=== PATIENT | female | born 1990 | race Caucasian/White ===

== ENCOUNTER 2017-10-28 11:18 | Inpatient (IN) | payer OTHER ==
[2017-10-28 11:47] VITALS: BMI 25.0
--- NOTE | 2017-10-28 14:41 | HP ---
COWS - Scale Resting Pulse: 1= [place] 81-100 Sweatin=Flushed/Facial Moisture Restless Observation: 3= Extraneous Movement Pupil Size: 2= Moderately Dilated Bone or Joint Aches: 2= Severe Diffuse Aches Runny Nose/ Eye Tearin= Runny Nose/Eyes GI Upset > 30mins: 3= Vomiting/Diarrhea Tremor Observation: 2= Slight Tremor Visible Yawning Observation: 2= >3x During Session Anxiety or Irritability: 2=Irritable/Anxious Goose Flesh Skin: 0=Smooth Skin COWS Score: 21 CIWA Score - CIWA Score Nausea/Vomitin Muscle Tremors: 3 Anxiety: 3 Agitation: 3 Paroxysmal Sweats: 1-Minimal Palms Moist Orientation: 0-Oriented Tacttile Disturbances: 2-Mild Itch/Numbness/Burn Auditory Disturbances: 2-Mild Harshness/Frighten Visual Disturbances: 0-None Headache: 2-Mild CIWA-Ar Total Score: 19 Admission ROS BHS - HPI Chief Complaint: i need help to stop using heroin,alxohil,xanax,cocaine Allergies/Adverse Reactions: Allergies Allergy/AdvReac Type Severity Reaction Status Date / Time No Known Allergies Allergy Verified 10/28/17 14:20 History of Present Illness: this 27 years old female with heroin,alcohol,xanax,cocaine dpendence,seeking detox,withdrawal symptom,never been in detox before seizure drug withdrawal last 06/14 anxiety,depression,insomnia nicotine dependence need help to come in for detox - Ebola screening Have you traveled outside of the country in the last 21 days: No Have you had contact with anyone from an Ebola affected area: No Have you been sick,other than usual withdrawal symptoms: No - Review of Systems Constitutional: Chills, Diaphoresis, Loss of Appetite, Malaise, Night Sweats, Changes in sleep, Weakness, Unintentional Wgt. Loss EENT: reports: Tearing, Nose Congestion Respiratory: reports: No Symptoms reported Cardiac: reports: Palpitations GI: reports: Diarrhea, Nausea, Vomiting, Abdominal cramping : reports: No Symptoms Reported Musculoskeletal: reports: Back Pain, Joint Pain, Muscle Pain, Joint Stiffness Integumentary: reports: Dryness Neuro: reports: Headache, Tremors Endocrine: reports: No Symptoms Reported Hematology: reports: No Symptoms Reported Psychiatric: reports: No Sypmtoms Reported, Judgement Intact, Mood/Affect Appropiate, Orientated x3 (insomnia), Anxious, Depressed Patient History - Patient Medical History Hx Asthma: No Hx Chronic Obstructive Pulmonary Disease (COPD): No Hx Cardiac Disorders: No Hx Hypertension: No Hx Seizures: Yes (XANAX RELATED LAST 4 MONTHS AGO.) Hx Diabetes: No Hx Gastrointestinal Disorders: No Hx Genitourinary Disorders: No Hx Sexually Transmitted Disorders: No Hx Renal Disease (ESRD): No Hx Thyroid Disease: No Hx Human Immunodeficiency Virus (HIV): No (06/14) Hx Hepatitis C: No Hx Depression: Yes (anxiety) Hx Suicide Attempt: No Hx Bipolar Disorder: No Hx Schizophrenia: No Other Medical History: insomnia - Patient Surgical History Past Surgical History: No - PPD History Previous Implant?: Yes Documented Results: Negative w/o proof Implanted On Prior [facility] Admission?: No PPD to be Administered?: Yes - Reproductive History Patient is a Female of Child Bearing Age (11 -55 yrs old): Yes Last Menstrual Period: 10/18/17 Patient : No - Smoking Cessation Smoking history: Current every day smoker Aproximately how many cigarettes per day: 20 Hx Chewing Tobacco Use: No Initiated information on smoking cessation: Yes 'Breaking Loose' booklet given: 10/28/17 - Substance & Tx. History Hx Alcohol Use: Yes Hx Substance Use: Yes Substance Use Type: Alcohol, Cocaine, Heroin, Tranquilizers Hx Substance Use Treatment: No - Substances Abused Heroin Route: Injection Frequency: Daily Amount used: 20 BAGS Age of first use: 27 Date of Last Use: 10/27/17 Alcohol Route: Oral Frequency: Daily Amount used: 1 PINT VODKA OR BOTTLE WINE Age of first use: 16 Date of Last Use: 10/26/17 Alprazolam (Xanax) Route: Oral Frequency: Daily Amount used: 8MG Age of first use: 18 Date of Last Use: 10/26/17 Family Disease History - Family Disease History Family Disease History: Other: Mother (alcohol), Sister Admission Physical Exam BHS - Vital Signs Vital Signs: Vital Signs - 24 hr 10/28/17 11:44 Temperature 98.2 F Pulse Rate 100 H Respiratory 18 Rate Blood Pressure 139/73 - Physical General Appearance: Yes: Moderate Distress, Tremorous, Irritable, Sweating, Anxious HEENTM: Yes: Normal ENT Inspection, ERIN, Pharynx Normal Respiratory: Yes: Lungs Clear, Normal Breath Sounds, No Respiratory Distress Neck: Yes: Within Normal Limits Breast: Yes: Breast Exam Deferred Cardiology: Yes: Tachycardia Abdominal: Yes: Within Normal Limits, Soft Genitourinary: Yes: Within Normal Limits Back: Yes: Muscle Spasm Musculoskeletal: Yes: Back pain, Joint Stiffness, Muscle Pain Extremities: Yes: Tremors Neurological: Yes: roller mechanic II-XII NML intact, Fully Oriented, Alert, Motor Strength 5/5 Integumentary: Yes: Dry Lymphatic: Yes: Within Normal Limits - Diagnostic (1) Opioid dependence with withdrawal Current Visit: Yes Status: Acute (2) Alcohol dependence with uncomplicated withdrawal Current Visit: Yes Status: Acute (3) Uncomplicated sedative, hypnotic or anxiolytic withdrawal Current Visit: Yes Status: Acute (4) Nicotine dependence Current Visit: Yes Status: Acute (5) Insomnia secondary to depression with anxiety Current Visit: Yes Status: Acute (6) Weight loss Current Visit: Yes Status: Acute Cleared for Admission [facility] - Detox or Rehab [facility] Level of Care: Medically Managed Detox Regimen/Protocol: Methadone/Valium [facility] Breath Alcohol Content Breath Alcohol Content: 0 Urine Pregancy Test - Result Urine Test Results: Negative- NO Line Present Urine Drug Screen - Results Drug Screen Negative: No Urine Drug Screen Results: TIFFANIE-Cocaine, OPI-Opiates, OXY-Oxycodone
[2017-10-28] MEDS ORDERED: guaiFENesin/D-METHORPHAN HB 10 ML UNIT-DOSE CUPS PO PRN (14:51)
[2017-10-28] MEDS ORDERED: P-EPHED 60MG/TRIPROLIDI 2.5MG TABLET PO PRN (14:51)
[2017-10-28] MEDS ORDERED: MAG HYDROX/AL HYDROX/SIMETH 30 ML UNIT-DOSE CUP PO PRN (14:51)
[2017-10-28] MEDS ORDERED: MAGNESIUM HYDROX 2400MG/30ML ORAL SUSPENSION 30 ML CUP PO PRN (14:51)
[2017-10-28] MEDS ORDERED: MENTHOL/PHENOL 1 EACH UD MM PRN (14:51)
[2017-10-28] MEDS ORDERED: LOPERAMIDE HCL 2 MG CAPSULE PO PRN (14:51)
[2017-10-28] MEDS ORDERED: MAGNESIUM CITRATE 300 ML BOTTLE PO PRN (14:51)
[2017-10-28] MEDS ORDERED: ACETAMINOPHEN 325 MG TABLET (FP) PO PRN (14:51)
[2017-10-28] MEDS ORDERED: IBUPROFEN 400 MG TABLET (FP) PO PRN (14:51)
[2017-10-28] MEDS ORDERED: NICOTINE POLACRILEX 2 MG GUM BUC PRN (14:51)
[2017-10-28] MEDS ORDERED: diazePAM 5 MG TABLET PO ONE (15:10)
[2017-10-28] MEDS ORDERED: METHADONE HCL 10 MG TABLET (FOR DETOX USE ONLY) PO ONE ×2 (15:15→23:00)
[2017-10-28] MEDS: NICOTINE 21 MG/24 HOURS TOPICAL PATCH TD SCH (15:27)
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
[2017-10-28 22:31] LABS: URINE APPEARANCE CLOUDY; URINE BILIRUBIN NEGATIVE (NEGATIVE); URINE BLOOD NEGATIVE (NEGATIVE); URINE COLOR LTYELLOW; URINE GLUCOSE (UA) NEGATIVE (NEGATIVE); URINE KETONE NEGATIVE (NEGATIVE); URINE NITRITE NEGATIVE (NEGATIVE); URINE PROTEIN NEGATIVE (NEGATIVE); URINE UROBILINOGEN NEGATIVE mg/dL (0.2-1.0)
[2017-10-28 22:32] LABS: URINE LEUK ESTERASE 3+ (NEGATIVE)
[2017-10-28 22:41] LABS: EPI CELLS MODERATE /HPF (FEW)
[2017-10-28] MEDS: diazePAM 5 MG TABLET PO SCH (22:49)
[2017-10-28] MEDS: THIAMINE HCL 100 MG TABLET (FP) PO SCH (22:49)
[2017-10-28] MEDS: ZOLPIDEM TARTRATE 5 MG TABLET PO PRN (22:49)
[2017-10-29] MEDS: diazePAM 5 MG TABLET PO SCH ×3 (05:57→22:36)
[2017-10-29] MEDS ORDERED: METHADONE HCL 10 MG TABLET (FOR DETOX USE ONLY) PO SCH (10:00)
[2017-10-29] MEDS: NICOTINE 21 MG/24 HOURS TOPICAL PATCH TD SCH (10:34)
[2017-10-29] MEDS: PRENATAL VITAMINS W/ FOLIC ACID TABLET (FP) PO SCH (10:34)
[2017-10-29] MEDS: diazePAM 5 MG TABLET PO PRN ×2 (10:34→17:29)
[2017-10-29 11:02] LABS: HEMATOCRIT 37.3 % (32.4-45.2); HEMOGLOBIN 12.9 GM/dL (10.7-15.3); MCH 30.8 pg (25.7-33.7); MCHC 34.6 g/dl (32.0-36.0); MEAN CELL VOLUME 88.8 fl (80-96); MEAN PLT VOLUME 7.5 fl (7.5-11.1); PLATELET COUNT 415 K/MM3 (134-434); RDW 12.4 % (11.6-15.6); WHITE BLOOD COUNT 10.9 K/mm3 (4.0-10.0)
[2017-10-29 11:12] LABS: ALBUMIN 3.5 g/dl (3.4-5.0); ANION GAP 7 (8-16); BLOOD UREA NITROGEN 5 mg/dL (7-18); CHLORIDE 101 mmol/L (98-107); CO2 27 mmol/L (21-32); CREATININE 0.8 mg/dL (0.55-1.02); GLUCOSE,RANDOM 135 mg/dL (74-106); POTASSIUM 3.9 mmol/L (3.5-5.1); SGOT/AST 18 U/L (15-37); SGPT/ALT 28 U/L (12-78); SODIUM 135 mmol/L (136-145)
[2017-10-29 11:14] LABS: ALK PHOS 78 U/L (45-117); BILIRUBIN,TOTAL 0.5 mg/dL (0.2-1.0); TOT PROT 7.2 g/dl (6.4-8.2)
--- NOTE | 2017-10-29 11:57 | EKG ---
Test Reason : Blood Pressure : / mmHG Vent. Rate : 072 BPM Atrial Rate : 072 BPM P-R Int : 140 ms QRS Dur : 100 ms QT Int : 370 ms P-R-T Axes : 053 099 057 degrees QTc Int : 405 ms NORMAL SINUS RHYTHM WITH SINUS ARRHYTHMIA RIGHTWARD AXIS BORDERLINE ECG NO PREVIOUS ECGS AVAILABLE Confirmed by MD LAVELL, PAM ([id number]) on 10/29/2017 11:57:34 AM Referred By: Confirmed By:PAM MONTE MD
--- NOTE | 2017-10-29 16:03 | PN ---
[facility] CIWA - CIWA Score Nausea/Vomitin Muscle Tremors: 3 Anxiety: 3 Agitation: 2 Paroxysmal Sweats: 1-Minimal Palms Moist Orientation: 0-Oriented Tacttile Disturbances: 1-Very Mild Itch/Numbness Auditory Disturbances: 1-Very Mild Visual Disturbances: 0-None Headache: 2-Mild CIWA-Ar Total Score: 16 BHS COWS - Scale Resting Pulse: 1= [place] 81-100 Sweatin= Chills/Flushing Restless Observation: 3= Extraneous Movement Pupil Size: 1= Pupils >than Normal Bone or Joint Aches: 2= Severe Diffuse Aches Runny Nose/ Eye Tearin= Runny Nose/Eyes GI Upset > 30mins: 3= Vomiting/Diarrhea Tremor Observation of Outstretched Hands: 2= Slight Tremor Visible Yawning Observation: 1= 1-2x During Session Anxiety or Irritability: 2=Irritable/Anxious Goose Flesh Skin: 0=Smooth Skin COWS Score: 18 S Progress Note (SOAP) Subjective: ALERT,IRRITABLE,ANXIOUS,INTERRUPTED SLEEP,PAIN IN THE BODY AND BACK Objective: 10/29/17 16:00 Vital Signs Temperature 99.1 F 10/29/17 11:52 Pulse Rate 81 10/29/17 11:52 Respiratory Rate 16 10/29/17 11:52 Blood Pressure 114/73 10/29/17 11:52 O2 Sat by Pulse Oximetry (%) EKG NSR WITH SINUS ARRHYTHMIA NO CHEST PAIN,NO SOB,NO DIZZINESS Laboratory Last Values WBC 10.9 K/mm3 (4.0-10.0) H 10/29/17 05:40 RBC 4.20 M/mm3 (3.60-5.2) 10/29/17 05:40 Hgb 12.9 GM/dL (10.7-15.3) 10/29/17 05:40 Hct 37.3 % (32.4-45.2) 10/29/17 05:40 MCV 88.8 fl (80-96) 10/29/17 05:40 MCH 30.8 pg (25.7-33.7) 10/29/17 05:40 MCHC 34.6 g/dl (32.0-36.0) 10/29/17 05:40 RDW 12.4 % (11.6-15.6) 10/29/17 05:40 Plt Count 415 K/MM3 (134-434) 10/29/17 05:40 MPV 7.5 fl (7.5-11.1) 10/29/17 05:40 Sodium 135 mmol/L (136-145) L 10/29/17 05:40 Potassium 3.9 mmol/L (3.5-5.1) 10/29/17 05:40 Chloride 101 mmol/L (98-107) 10/29/17 05:40 Carbon Dioxide 27 mmol/L (21-32) 10/29/17 05:40 Anion Gap 7 (8-16) L 10/29/17 05:40 BUN 5 mg/dL (7-18) L 10/29/17 05:40 Creatinine 0.8 mg/dL (0.55-1.02) 10/29/17 05:40 Creat Clearance w eGFR > 60 (>60) 10/29/17 05:40 Random Glucose 135 mg/dL (74-106) H 10/29/17 05:40 Calcium 8.0 mg/dL (8.5-10.1) L 10/29/17 05:40 Total Bilirubin 0.5 mg/dL (0.2-1.0) 10/29/17 05:40 AST 18 U/L (15-37) 10/29/17 05:40 ALT 28 U/L (12-78) 10/29/17 05:40 Alkaline Phosphatase 78 U/L (45-117) 10/29/17 05:40 Total Protein 7.2 g/dl (6.4-8.2) 10/29/17 05:40 Albumin 3.5 g/dl (3.4-5.0) 10/29/17 05:40 Urine Color Ltyellow 10/28/17 21:30 Urine Appearance Cloudy 10/28/17 21:30 Urine pH 7.0 (5.0-8.0) D 10/28/17 21:30 Ur Specific [place] 1.003 (1.001-1.035) 10/28/17 21:30 Urine Protein Negative (NEGATIVE) 10/28/17 21:30 Urine Glucose (UA) Negative (NEGATIVE) 10/28/17 21:30 Urine Ketones Negative (NEGATIVE) 10/28/17 21:30 Urine Blood Negative (NEGATIVE) 10/28/17 21:30 Urine Nitrite Negative (NEGATIVE) 10/28/17 21:30 Urine Bilirubin Negative (NEGATIVE) 10/28/17 21:30 Urine Urobilinogen Negative mg/dL (0.2-1.0) 10/28/17 21:30 Ur Leukocyte Esterase 3+ (NEGATIVE) H 10/28/17 21:30 Urine WBC (Auto) 15 /hpf (3-5) 10/28/17 21:30 Urine RBC (Auto) 1 /hpf (0-3) 10/28/17 21:30 Ur Epithelial Cells Moderate /HPF (FEW) 10/28/17 21:30 Assessment: 10/29/17 16:02 WITHDRAWAL SYMPTOM Plan: CONTINUE DETOX,BGM MONITORING,ENCOURAGE ORAL FLUID,BGM MONITORING
[2017-10-29] MEDS: ZOLPIDEM TARTRATE 5 MG TABLET PO PRN (22:36)
[2017-10-29] MEDS: THIAMINE HCL 100 MG TABLET (FP) PO SCH (22:36)
[2017-10-30] MEDS: diazePAM 5 MG TABLET PO PRN ×5 (02:48→20:47)
[2017-10-30] MEDS: NICOTINE 21 MG/24 HOURS TOPICAL PATCH TD SCH (10:18)
[2017-10-30] MEDS: METHADONE HCL 5 MG TABLET (FOR DETOX USE ONLY) PO SCH (10:18)
[2017-10-30] MEDS: diazePAM 5 MG TABLET PO SCH ×2 (10:18→22:39)
[2017-10-30] MEDS: PRENATAL VITAMINS W/ FOLIC ACID TABLET (FP) PO SCH (10:18)
[2017-10-30 10:27] LABS: HEMATOCRIT 33.7 % (32.4-45.2); HEMOGLOBIN 11.7 GM/dL (10.7-15.3); MCH 30.8 pg (25.7-33.7); MCHC 34.7 g/dl (32.0-36.0); MEAN CELL VOLUME 88.6 fl (80-96); MEAN PLT VOLUME 6.9 fl (7.5-11.1); PLATELET COUNT 380 K/MM3 (134-434); RDW 12.3 % (11.6-15.6); WHITE BLOOD COUNT 7.1 K/mm3 (4.0-10.0)
--- NOTE | 2017-10-30 10:29 | PN ---
[facility] CIWA - CIWA Score Nausea/Vomitin-No Nausea/No Vomiting Muscle Tremors: 4-Moderate,w/Arms Extend Anxiety: 4-Mod. Anxious/Guarded Agitation: 3 Paroxysmal Sweats: 1-Minimal Palms Moist Orientation: 0-Oriented Tacttile Disturbances: 0-None Auditory Disturbances: 0-None Visual Disturbances: 0-None Headache: 0-None Present CIWA-Ar Total Score: 12 BHS COWS - Scale Resting Pulse: 0= [place] 80 or Below Sweatin= Chills/Flushing Restless Observation: 1= Difficult to Sit Still Pupil Size: 1= Pupils >than Normal Bone or Joint Aches: 2= Severe Diffuse Aches Runny Nose/ Eye Tearin= Runny Nose/Eyes GI Upset > 30mins: 1= Stomach Cramp Tremor Observation of Outstretched Hands: 2= Slight Tremor Visible Yawning Observation: 2= >3x During Session Anxiety or Irritability: 2=Irritable/Anxious Goose Flesh Skin: 0=Smooth Skin COWS Score: 14 S Progress Note (SOAP) Subjective: sweat tremor restlessness irritable agitation joint aches Objective: 10/30/17 10:28 Vital Signs Temperature 98.1 F 10/30/17 08:14 Pulse Rate 69 10/30/17 08:14 Respiratory Rate 16 10/30/17 08:14 Blood Pressure 124/77 10/30/17 08:14 O2 Sat by Pulse Oximetry (%) Laboratory Last Values WBC 10.9 K/mm3 (4.0-10.0) H 10/29/17 05:40 RBC 4.20 M/mm3 (3.60-5.2) 10/29/17 05:40 Hgb 12.9 GM/dL (10.7-15.3) 10/29/17 05:40 Hct 37.3 % (32.4-45.2) 10/29/17 05:40 MCV 88.8 fl (80-96) 10/29/17 05:40 MCH 30.8 pg (25.7-33.7) 10/29/17 05:40 MCHC 34.6 g/dl (32.0-36.0) 10/29/17 05:40 RDW 12.4 % (11.6-15.6) 10/29/17 05:40 Plt Count 415 K/MM3 (134-434) 10/29/17 05:40 MPV 7.5 fl (7.5-11.1) 10/29/17 05:40 Sodium 135 mmol/L (136-145) L 10/29/17 05:40 Potassium 3.9 mmol/L (3.5-5.1) 10/29/17 05:40 Chloride 101 mmol/L (98-107) 10/29/17 05:40 Carbon Dioxide 27 mmol/L (21-32) 10/29/17 05:40 Anion Gap 7 (8-16) L 10/29/17 05:40 BUN 5 mg/dL (7-18) L 10/29/17 05:40 Creatinine 0.8 mg/dL (0.55-1.02) 10/29/17 05:40 Creat Clearance w eGFR > 60 (>60) 10/29/17 05:40 Random Glucose 135 mg/dL (74-106) H 10/29/17 05:40 Calcium 8.0 mg/dL (8.5-10.1) L 10/29/17 05:40 Total Bilirubin 0.5 mg/dL (0.2-1.0) 10/29/17 05:40 AST 18 U/L (15-37) 10/29/17 05:40 ALT 28 U/L (12-78) 10/29/17 05:40 Alkaline Phosphatase 78 U/L (45-117) 10/29/17 05:40 Total Protein 7.2 g/dl (6.4-8.2) 10/29/17 05:40 Albumin 3.5 g/dl (3.4-5.0) 10/29/17 05:40 Urine Color Ltyellow 10/28/17 21:30 Urine Appearance Cloudy 10/28/17 21:30 Urine pH 7.0 (5.0-8.0) D 10/28/17 21:30 Ur Specific [place] 1.003 (1.001-1.035) 10/28/17 21:30 Urine Protein Negative (NEGATIVE) 10/28/17 21:30 Urine Glucose (UA) Negative (NEGATIVE) 10/28/17 21:30 Urine Ketones Negative (NEGATIVE) 10/28/17 21:30 Urine Blood Negative (NEGATIVE) 10/28/17 21:30 Urine Nitrite Negative (NEGATIVE) 10/28/17 21:30 Urine Bilirubin Negative (NEGATIVE) 10/28/17 21:30 Urine Urobilinogen Negative mg/dL (0.2-1.0) 10/28/17 21:30 Ur Leukocyte Esterase 3+ (NEGATIVE) H 10/28/17 21:30 Urine WBC (Auto) 15 /hpf (3-5) 10/28/17 21:30 Urine RBC (Auto) 1 /hpf (0-3) 10/28/17 21:30 Ur Epithelial Cells Moderate /HPF (FEW) 10/28/17 21:30 lab noted Assessment: 10/30/17 10:29 withdrawal sx Plan: continue detox
[2017-10-30 18:28] LABS: URINE APPEARANCE CLEAR; URINE BILIRUBIN NEGATIVE (NEGATIVE); URINE BLOOD NEGATIVE (NEGATIVE); URINE COLOR YELLOW; URINE GLUCOSE (UA) NEGATIVE (NEGATIVE); URINE KETONE NEGATIVE (NEGATIVE); URINE LEUK ESTERASE TRACE (NEGATIVE); URINE NITRITE NEGATIVE (NEGATIVE); URINE PROTEIN NEGATIVE (NEGATIVE); URINE UROBILINOGEN NEGATIVE mg/dL (0.2-1.0)
[2017-10-30 18:32] LABS: EPI CELLS RARE /HPF (FEW); URINE MUCUS MODERATE
[2017-10-30] MEDS: THIAMINE HCL 100 MG TABLET (FP) PO SCH (22:39)
[2017-10-30] MEDS: ZOLPIDEM TARTRATE 5 MG TABLET PO PRN (22:39)
[2017-10-31] MEDS: diazePAM 5 MG TABLET PO PRN ×3 (00:34→13:13)
--- NOTE | 2017-10-31 09:58 | PN ---
BHS Progress Note (SOAP) Subjective: joint aches sweat tremor restlessness gi upset Objective: 10/31/17 09:57 Vital Signs Temperature 97.9 F 10/31/17 06:00 Pulse Rate 89 10/31/17 06:00 Respiratory Rate 18 10/31/17 06:00 Blood Pressure 95/51 10/31/17 06:00 O2 Sat by Pulse Oximetry (%) Laboratory Last Values WBC 7.1 K/mm3 (4.0-10.0) D 10/30/17 08:00 RBC 3.80 M/mm3 (3.60-5.2) 10/30/17 08:00 Hgb 11.7 GM/dL (10.7-15.3) 10/30/17 08:00 Hct 33.7 % (32.4-45.2) 10/30/17 08:00 MCV 88.6 fl (80-96) 10/30/17 08:00 MCH 30.8 pg (25.7-33.7) 10/30/17 08:00 MCHC 34.7 g/dl (32.0-36.0) 10/30/17 08:00 RDW 12.3 % (11.6-15.6) 10/30/17 08:00 Plt Count 380 K/MM3 (134-434) 10/30/17 08:00 MPV 6.9 fl (7.5-11.1) L 10/30/17 08:00 Sodium 135 mmol/L (136-145) L 10/29/17 05:40 Potassium 3.9 mmol/L (3.5-5.1) 10/29/17 05:40 Chloride 101 mmol/L (98-107) 10/29/17 05:40 Carbon Dioxide 27 mmol/L (21-32) 10/29/17 05:40 Anion Gap 7 (8-16) L 10/29/17 05:40 BUN 5 mg/dL (7-18) L 10/29/17 05:40 Creatinine 0.8 mg/dL (0.55-1.02) 10/29/17 05:40 Creat Clearance w eGFR > 60 (>60) 10/29/17 05:40 Random Glucose 135 mg/dL (74-106) H 10/29/17 05:40 Calcium 8.0 mg/dL (8.5-10.1) L 10/29/17 05:40 Total Bilirubin 0.5 mg/dL (0.2-1.0) 10/29/17 05:40 AST 18 U/L (15-37) 10/29/17 05:40 ALT 28 U/L (12-78) 10/29/17 05:40 Alkaline Phosphatase 78 U/L (45-117) 10/29/17 05:40 Total Protein 7.2 g/dl (6.4-8.2) 10/29/17 05:40 Albumin 3.5 g/dl (3.4-5.0) 10/29/17 05:40 Urine Color Yellow 10/30/17 10:35 Urine Appearance Clear 10/30/17 10:35 Urine pH 6.0 (5.0-8.0) 10/30/17 10:35 Ur Specific [place] 1.010 (1.001-1.035) 10/30/17 10:35 Urine Protein Negative (NEGATIVE) 10/30/17 10:35 Urine Glucose (UA) Negative (NEGATIVE) 10/30/17 10:35 Urine Ketones Negative (NEGATIVE) 10/30/17 10:35 Urine Blood Negative (NEGATIVE) 10/30/17 10:35 Urine Nitrite Negative (NEGATIVE) 10/30/17 10:35 Urine Bilirubin Negative (NEGATIVE) 10/30/17 10:35 Urine Urobilinogen Negative mg/dL (0.2-1.0) 10/30/17 10:35 Ur Leukocyte Esterase Trace (NEGATIVE) 10/30/17 10:35 Urine WBC (Auto) 1 /hpf (3-5) 10/30/17 10:35 Urine RBC (Auto) <1 /hpf (0-3) 10/30/17 10:35 Ur Epithelial Cells Rare /HPF (FEW) 10/30/17 10:35 Urine Mucus Moderate 10/30/17 10:35 RPR Titer Nonreactive (NONREACTIVE) 10/29/17 05:40 lab noted Assessment: 10/31/17 09:57 withdrawal sx Plan: continue detox
[2017-10-31] MEDS: diazePAM 5 MG TABLET PO SCH ×2 (11:09→22:26)
[2017-10-31] MEDS: PRENATAL VITAMINS W/ FOLIC ACID TABLET (FP) PO SCH (11:09)
[2017-10-31] MEDS: METHADONE HCL 5 MG TABLET (FOR DETOX USE ONLY) PO SCH (11:09)
[2017-10-31] MEDS: NICOTINE 21 MG/24 HOURS TOPICAL PATCH TD SCH (11:11)
[2017-10-31] MEDS: hydrOXYzine PAMOATE 25 MG CAPSULE (FP) PO PRN (17:06)
[2017-10-31] MEDS: ZOLPIDEM TARTRATE 5 MG TABLET PO PRN (22:26)
[2017-10-31] MEDS: THIAMINE HCL 100 MG TABLET (FP) PO SCH (22:26)
--- NOTE | 2017-11-01 08:59 | PN ---
S Progress Note (SOAP) Subjective: alert oriented x 3, tolerates food and fluid well, no tremor less sweat Objective: 11/01/17 08:59 Vital Signs Temperature 97.9 F 11/01/17 06:00 Pulse Rate 84 11/01/17 06:00 Respiratory Rate 16 11/01/17 06:00 Blood Pressure 134/54 11/01/17 06:00 O2 Sat by Pulse Oximetry (%) Laboratory Last Values WBC 7.1 K/mm3 (4.0-10.0) D 10/30/17 08:00 RBC 3.80 M/mm3 (3.60-5.2) 10/30/17 08:00 Hgb 11.7 GM/dL (10.7-15.3) 10/30/17 08:00 Hct 33.7 % (32.4-45.2) 10/30/17 08:00 MCV 88.6 fl (80-96) 10/30/17 08:00 MCH 30.8 pg (25.7-33.7) 10/30/17 08:00 MCHC 34.7 g/dl (32.0-36.0) 10/30/17 08:00 RDW 12.3 % (11.6-15.6) 10/30/17 08:00 Plt Count 380 K/MM3 (134-434) 10/30/17 08:00 MPV 6.9 fl (7.5-11.1) L 10/30/17 08:00 Sodium 135 mmol/L (136-145) L 10/29/17 05:40 Potassium 3.9 mmol/L (3.5-5.1) 10/29/17 05:40 Chloride 101 mmol/L (98-107) 10/29/17 05:40 Carbon Dioxide 27 mmol/L (21-32) 10/29/17 05:40 Anion Gap 7 (8-16) L 10/29/17 05:40 BUN 5 mg/dL (7-18) L 10/29/17 05:40 Creatinine 0.8 mg/dL (0.55-1.02) 10/29/17 05:40 Creat Clearance w eGFR > 60 (>60) 10/29/17 05:40 Random Glucose 135 mg/dL (74-106) H 10/29/17 05:40 Calcium 8.0 mg/dL (8.5-10.1) L 10/29/17 05:40 Total Bilirubin 0.5 mg/dL (0.2-1.0) 10/29/17 05:40 AST 18 U/L (15-37) 10/29/17 05:40 ALT 28 U/L (12-78) 10/29/17 05:40 Alkaline Phosphatase 78 U/L (45-117) 10/29/17 05:40 Total Protein 7.2 g/dl (6.4-8.2) 10/29/17 05:40 Albumin 3.5 g/dl (3.4-5.0) 10/29/17 05:40 Urine Color Yellow 10/30/17 10:35 Urine Appearance Clear 10/30/17 10:35 Urine pH 6.0 (5.0-8.0) 10/30/17 10:35 Ur Specific [place] 1.010 (1.001-1.035) 10/30/17 10:35 Urine Protein Negative (NEGATIVE) 10/30/17 10:35 Urine Glucose (UA) Negative (NEGATIVE) 10/30/17 10:35 Urine Ketones Negative (NEGATIVE) 10/30/17 10:35 Urine Blood Negative (NEGATIVE) 10/30/17 10:35 Urine Nitrite Negative (NEGATIVE) 10/30/17 10:35 Urine Bilirubin Negative (NEGATIVE) 10/30/17 10:35 Urine Urobilinogen Negative mg/dL (0.2-1.0) 10/30/17 10:35 Ur Leukocyte Esterase Trace (NEGATIVE) 10/30/17 10:35 Urine WBC (Auto) 1 /hpf (3-5) 10/30/17 10:35 Urine RBC (Auto) <1 /hpf (0-3) 10/30/17 10:35 Ur Epithelial Cells Rare /HPF (FEW) 10/30/17 10:35 Urine Mucus Moderate 10/30/17 10:35 RPR Titer Nonreactive (NONREACTIVE) 10/29/17 05:40 lab noted
[2017-11-01] MEDS ORDERED: diazePAM 5 MG TABLET PO SCH (10:00)
[2017-11-01] MEDS ORDERED: METHADONE HCL 10 MG TABLET (FOR DETOX USE ONLY) PO SCH (10:00)
[2017-11-01] MEDS: PRENATAL VITAMINS W/ FOLIC ACID TABLET (FP) PO SCH (10:54)
[2017-11-01] MEDS: NICOTINE 21 MG/24 HOURS TOPICAL PATCH TD SCH (10:55)
[2017-11-01] MEDS: hydrOXYzine PAMOATE 25 MG CAPSULE (FP) PO PRN ×2 (13:30→19:48)
--- NOTE | 2017-11-01 18:15 | PN ---
Psychiatric Progress Note Vital Signs: Vital Signs Period Temp Pulse Resp BP Sys/Xiong Pulse Ox Last 24 Hr 96.8 F-98.2 F 61-84 16-18 109-134/54-76 Date of Session: 11/01/17 Chief Complaint:: " I'm having difficulty sleeping. " HPI: Pt. admitted to for opiate, benzodiazepine, and alcohol dependence. ROS: Unremarkable. Current Medications: Active Medications Generic Name Dose Route Start Last Admin Trade Name Freq PRN Reason Stop Dose Admin Acetaminophen 650 mg 10/28/17 14:51 Tylenol - PO Q4H PRN FEVER Al Hydroxide/Mg Hydroxide 30 ml 10/28/17 14:51 Mylanta Oral Suspension - PO Q6H PRN DYSPEPSIA Eucalyptus/Menthol/Phenol/Sorbitol 1 each 10/28/17 14:51 Cepastat Lozenge - MM Q4H PRN SORE THROAT Guaifenesin 10 ml 10/28/17 14:51 Robitussin Dm - PO Q6H PRN COUGH Hydroxyzine Pamoate 25 mg 10/28/17 14:51 11/01/17 13:30 Vistaril - PO 25 mg Q4H PRN Administration AGITATION Ibuprofen 400 mg 10/28/17 14:51 Motrin - PO Q6H PRN PAIN LEVEL 4-6 Loperamide HCl 4 mg 10/28/17 14:51 Imodium - PO Q6H PRN DIARRHEA Magnesium Citrate 300 ml 10/28/17 14:51 Citroma - PO Q48H PRN CONSTIPATION Magnesium Hydroxide 30 ml 10/28/17 14:51 Milk Of Magnesia - PO DAILY PRN CONSTIPATION Methadone HCl 5 mg 11/02/17 06:00 Dolophine - PO 11/02/17 06:01 DAILY@0600 JOSE F Nicotine 21 mg 10/28/17 15:00 11/01/17 10:55 Nicoderm Patch - TD 21 mg DAILY JOSE F Administration Nicotine Polacrilex 2 mg 10/28/17 14:51 Nicorette Gum - BUC Q2H PRN NICOTINE REPLACEMENT RX Non-Formulary Medication 1 each 10/28/17 22:00 10/31/17 22:26 Norethindrone Ac-Eth Estradiol [Junel 1.5 Mg-30 Mcg Tablet] PO 1 each HS JOSE F Administration Multivit/Folic Acid/Iron 1 tab 10/29/17 10:00 11/01/17 10:54 Vitamins ([facility]) - PO 1 tab DAILY JOSE F Administration Pseudoephedrine/Triprolidine 1 combo 10/28/17 14:51 Actifed - PO TID PRN NASAL CONGESTION Thiamine HCl 100 mg 10/28/17 22:00 10/31/17 22:26 Vitamin B1 - PO 100 mg HS JOSE F Administration Zolpidem Tartrate 10 mg 11/01/17 22:00 Ambien - PO HS PRN INSOMNIA Medication(s) Change(s): Yes. Will add ambien 10mg qhs. Current Side Effect: No Lab tests ordered: No Lab tests reviewed: Yes Provider note:: [employer] Cast Specialist met with patient concerning psychatric reconsultation. Pt. c/o difficulty remaining asleep. Requesting ambien increased to 10mg qhs. Sleep hygiene discussed. Psychoeducation provided. Benefits and side effects ( sleep walking) discussed. Verbal consent given. Will order Ambien 10mg qhs. Total face to face time:: 25 Mental Status Exam - Mental Status Exam Alert and Oriented to: Time, Place, Person Cognitive Function: Good Patient Appearance: Well Groomed Mood: Hopeful Affect: Mood Congruent Patient Behavior: Appropriate, Cooperative Speech Pattern: Clear, Appropriate Voice Loudness: Normal Thought Process: Goal Oriented Thought Disorder: Not Present Hallucinations: Denies Suicidal Ideation: Denies Homicidal Ideation: Denies Insight/Judgement: Poor Sleep: Poorly Appetite: Fair Muscle strength/Tone: Normal Gait/Station: Normal Psychiatric Treatment Plan - Problem List (1) Alcohol dependence with uncomplicated withdrawal Current Visit: Yes (2) Opioid dependence with withdrawal Current Visit: Yes (3) Uncomplicated sedative, hypnotic or anxiolytic withdrawal Current Visit: Yes (4) Substance-induced sleep disorder Current Visit: Yes (5) Substance-induced sleep disorder Current Visit: Yes (6) Nicotine dependence Current Visit: Yes
[2017-11-01] MEDS ORDERED: ZOLPIDEM TARTRATE 5 MG TABLET PO PRN (22:00)
[2017-11-01] MEDS: THIAMINE HCL 100 MG TABLET (FP) PO SCH (22:55)
[2017-11-02] MEDS: hydrOXYzine PAMOATE 25 MG CAPSULE (FP) PO PRN ×2 (00:30→07:08)
[2017-11-02] MEDS ORDERED: METHADONE HCL 5 MG TABLET (FOR DETOX USE ONLY) PO SCH (06:00)
[2017-11-02 06:37] VITALS: BP 98/55; PULSE 94; TEMP 98.1
--- NOTE | 2017-11-02 08:38 | DS ---
[facility] Detox Discharge Summary Admission Date: 10/28/17 Discharge Date: 11/02/17 - History Present History: Alcohol Dependence, Opioid Dependence - Physical Exam Results Vital Signs: Vital Signs Temperature 98.1 F 11/02/17 06:37 Pulse Rate 94 H 11/02/17 06:37 Respiratory Rate 16 11/02/17 06:37 Blood Pressure 98/55 11/02/17 06:37 O2 Sat by Pulse Oximetry (%) Pertinent Admission Physical Exam Findings: withdrawal sx Vital Signs Temperature 98.1 F 11/02/17 06:37 Pulse Rate 94 H 11/02/17 06:37 Respiratory Rate 16 11/02/17 06:37 Blood Pressure 98/55 11/02/17 06:37 O2 Sat by Pulse Oximetry (%) Laboratory Last Values WBC 7.1 K/mm3 (4.0-10.0) D 10/30/17 08:00 RBC 3.80 M/mm3 (3.60-5.2) 10/30/17 08:00 Hgb 11.7 GM/dL (10.7-15.3) 10/30/17 08:00 Hct 33.7 % (32.4-45.2) 10/30/17 08:00 MCV 88.6 fl (80-96) 10/30/17 08:00 MCH 30.8 pg (25.7-33.7) 10/30/17 08:00 MCHC 34.7 g/dl (32.0-36.0) 10/30/17 08:00 RDW 12.3 % (11.6-15.6) 10/30/17 08:00 Plt Count 380 K/MM3 (134-434) 10/30/17 08:00 MPV 6.9 fl (7.5-11.1) L 10/30/17 08:00 Sodium 135 mmol/L (136-145) L 10/29/17 05:40 Potassium 3.9 mmol/L (3.5-5.1) 10/29/17 05:40 Chloride 101 mmol/L (98-107) 10/29/17 05:40 Carbon Dioxide 27 mmol/L (21-32) 10/29/17 05:40 Anion Gap 7 (8-16) L 10/29/17 05:40 BUN 5 mg/dL (7-18) L 10/29/17 05:40 Creatinine 0.8 mg/dL (0.55-1.02) 10/29/17 05:40 Creat Clearance w eGFR > 60 (>60) 10/29/17 05:40 Random Glucose 135 mg/dL (74-106) H 10/29/17 05:40 Calcium 8.0 mg/dL (8.5-10.1) L 10/29/17 05:40 Total Bilirubin 0.5 mg/dL (0.2-1.0) 10/29/17 05:40 AST 18 U/L (15-37) 10/29/17 05:40 ALT 28 U/L (12-78) 10/29/17 05:40 Alkaline Phosphatase 78 U/L (45-117) 10/29/17 05:40 Total Protein 7.2 g/dl (6.4-8.2) 10/29/17 05:40 Albumin 3.5 g/dl (3.4-5.0) 10/29/17 05:40 Urine Color Yellow 10/30/17 10:35 Urine Appearance Clear 10/30/17 10:35 Urine pH 6.0 (5.0-8.0) 10/30/17 10:35 Ur Specific [place] 1.010 (1.001-1.035) 10/30/17 10:35 Urine Protein Negative (NEGATIVE) 10/30/17 10:35 Urine Glucose (UA) Negative (NEGATIVE) 10/30/17 10:35 Urine Ketones Negative (NEGATIVE) 10/30/17 10:35 Urine Blood Negative (NEGATIVE) 10/30/17 10:35 Urine Nitrite Negative (NEGATIVE) 10/30/17 10:35 Urine Bilirubin Negative (NEGATIVE) 10/30/17 10:35 Urine Urobilinogen Negative mg/dL (0.2-1.0) 10/30/17 10:35 Ur Leukocyte Esterase Trace (NEGATIVE) 10/30/17 10:35 Urine WBC (Auto) 1 /hpf (3-5) 10/30/17 10:35 Urine RBC (Auto) <1 /hpf (0-3) 10/30/17 10:35 Ur Epithelial Cells Rare /HPF (FEW) 10/30/17 10:35 Urine Mucus Moderate 10/30/17 10:35 RPR Titer Nonreactive (NONREACTIVE) 10/29/17 05:40 lab noted - Treatment Hospital Course: Detox Protocol Followed, Detoxed Safely, Responded well, Discharged Condition Good, Rehab Referral Accepted Patient has Accept[facility] - Medication Discharge Medications: Ambulatory Orders Norethindrone AC-Eth Estradiol [Junel 1.5 mg-30 Mcg Tablet] 1 each PO HS - Diagnosis (1) Alcohol dependence with uncomplicated withdrawal Current Visit: Yes Status: Acute (2) Nicotine dependence Current Visit: Yes Status: Acute Qualifiers: Nicotine product type: cigarettes Substance use status: in withdrawal Qualified Code(s): F17.213 - Nicotine dependence, cigarettes, with withdrawal (3) Opioid dependence with withdrawal Current Visit: Yes Status: Acute - AMA Did Patient Leave Against Medical Advice: No
== END 2017-11-02 09:15 | disposition home or self-care (01) | DRG 773 ==
LOC: YASAS 11:18 → Y6N 14:41
PROVIDERS: ADMIT Internal Medicine; ATTEND Internal Medicine
PROC: HZ2ZZZZ Detoxification Services for Substance Abuse Treatment (ICD-10-PCS; principal; 2017-10-28)
DX: F11.23 Opioid dependence with withdrawal (principal); F10.230 Alcohol dependence with withdrawal, uncomplicated; F13.230 Sedative, hypnotic or anxiolytic dependence with withdrawal, uncomplicated; F17.213 Nicotine dependence, cigarettes, with withdrawal; F19.282 Other psychoactive substance dependence with psychoactive substance-induced sleep disorder; F51.05 Insomnia due to other mental disorder; I49.9 Cardiac arrhythmia, unspecified; R00.0 Tachycardia, unspecified; Z86.69 Personal history of other diseases of the nervous system and sense organs; Z87.898 Personal history of other specified conditions
CPT/HCPCS: 36415; 80053; 81003; 81015; 85027; 86593; 93005; 93010